=== PATIENT | female | born 1995 | race Caucasian/White ===

== ENCOUNTER 2017-03-24 01:02 | Emergency (ER) | payer OTHER ==
[~2017-03-24] VITALS: Ht 172.7 cm; Wt 65.8 kg
[~2017-03-24 01:02] MED LIST: AMOXICILLIN500 M1 PO; CLARITIN10 MG PO; MACROBID 100 M100 M1 PO; NOHOMEMEDICATIONS
[2017-03-24] MEDS ORDERED: NAPROSYN500 MG PO (01:50)
[2017-03-24 02:15] VITALS: BP 113/56
== END 2017-03-24 02:19 | disposition home or self-care (01) ==
LOC: ER 01:02
DX: S90.32XA Contusion of left foot, initial encounter (principal); W18.49XA Other slipping, tripping and stumbling without falling, initial encounter; Y93.89 Activity, other specified; Y92.89 Other specified places as the place of occurrence of the external cause; Y99.8 Other external cause status

== ENCOUNTER 2017-05-06 09:03 | Emergency (ER) | payer OTHER ==
[~2017-05-06] VITALS: Ht 172.7 cm; Wt 68.0 kg
[~2017-05-06 09:03] MED LIST changes: +NAPROSYN500 MG PO
[2017-05-06 09:50] VITALS: BP 109/61
== END 2017-05-06 09:51 | disposition home or self-care (01) ==
LOC: ER 09:03
DX: T19.2XXA Foreign body in vulva and vagina, initial encounter (principal); X58.XXXA Exposure to other specified factors, initial encounter; Y93.89 Activity, other specified; Y92.89 Other specified places as the place of occurrence of the external cause; Y99.8 Other external cause status